=== PATIENT | female | born 2000 | race African-American/Black ===

== ENCOUNTER 2020-11-14 13:55 | Inpatient (IN) | payer OTHER ==
[~2020-11-14] VITALS: Ht 147.3 cm; Wt 63.5 kg
== END 2020-11-14 21:15 | disposition home or self-care (01) | DRG 833 ==
LOC: ER 13:55 → SEC-K 18:11
PROVIDERS: ADMIT Obstetrics & Gynecology; ATTEND Obstetrics & Gynecology
PROC: BW21ZZZ Computerized Tomography (CT Scan) of Abdomen and Pelvis (ICD-10-PCS; principal; 2020-11-14)
DX: O02.0 Blighted ovum and nonhydatidiform mole (principal)